=== PATIENT | male | born 1945 ===

== ENCOUNTER 2018-10-02 10:00 | Emergency (ER) | payer OTHER ==
[~2018-10-02] VITALS: Ht 177.8 cm; Wt 79.4 kg
[2018-10-02] MEDS ORDERED: SYNTHROID175 MCG (10:28)
[2018-10-02] MEDS ORDERED: FINASTERIDE5 MG PO (10:28)
[2018-10-02] MEDS ORDERED: TAMS0.4C PO (10:28)
== END 2018-10-02 12:39 | disposition home or self-care (01) ==
LOC: ER 10:00
DX: M54.5 Low back pain (principal)